=== PATIENT | male | born 1940 | race Caucasian/White ===

== ENCOUNTER 2017-03-05 14:51 | Emergency (ER) | payer MEDICARE ==
[~2017-03-05] VITALS: Ht 188 cm; Wt 123.8 kg
[2017-03-05] MEDS ORDERED: LISINOPRIL-HCT1 EACH PO (15:17)
[2017-03-05] MEDS ORDERED: MONTELUKAST SOD10 MG PO (15:17)
[2017-03-05] MEDS ORDERED: TAMSULOSIN HCL0.4 MG PO (15:17)
[2017-03-05] MEDS ORDERED: AMITRIPTYLINE H25 MG PO (15:18)
[2017-03-05] MEDS ORDERED: LEVOTHYROXINE100 MCG PO (15:18)
[2017-03-05] MEDS ORDERED: ATORVASTATIN CA40 MG PO (15:19)
[2017-03-05] MEDS ORDERED: METOPROLOL SUC100 MG PO (15:19)
--- NOTE | 2017-03-05 21:08 | EKG ---
[facility] [address] [facility] [place] [address] Signed Atrial fibrillation with rapid ventricular response ST \T\ T wave abnormality, consider inferior ischemia Abnormal ECG No previous ECGs available Confirmed by JALEESA BIRMINGHAM MD ([id number]) on 03/05/2017 9:08:41 PM Electronically Signed By: JALEESA BIRMINGHAM MD 03/05/17 2108 PATIENT NAME: FATMATA WAGNER MADISYN Electrocardiogram DATE OF : 42 PHYSICIAN: JALEESA BIRMINGHAM MD REPORT #: [id number] REPORT IS CONFIDENTIAL AND NOT TO BE RELEASED WITHOUT AUTHORIZATION
== END 2017-03-05 16:41 | disposition home or self-care (01) ==
LOC: ED 14:51
DX: I48.91 Unspecified atrial fibrillation (principal); J45.909 Unspecified asthma, uncomplicated; I10 Essential (primary) hypertension; E78.00 Pure hypercholesterolemia, unspecified; Z87.891 Personal history of nicotine dependence; Z88.0 Allergy status to penicillin; Z79.899 Other long term (current) drug therapy
CPT/HCPCS: 71020; 80053; 84484; 85025; 93005; 93010; 99284

== ENCOUNTER 2019-04-02 05:45 | Observation (INO) | payer MEDICARE ==
[~2019-04-02] VITALS: Ht 188 cm; Wt 122.5 kg
[~2019-04-02 05:45] MED LIST: AMITRIPTYLINE H25 MG PO; ATORVASTATIN CA40 MG PO; COUMADIN1 MG PO; LEVOTHYROXINE100 MCG PO; LISINOPRIL-HCT1 EACH PO; METOPROLOL SUC100 MG PO; MONTELUKAST SOD10 MG PO; TAMSULOSIN HCL0.4 MG PO
--- NOTE | 2019-04-02 08:11 | NUR ---
04/02/19 0810 Carolyn Cam 0804-PATIENT ARRIVED TO PACU ON 10L MASK NONAROUSABLE RR EVEN. PLACED ON 6L MASK. PATIENT LAYING LEFT LATERAL ABDOMEN ROUND. PATIENT IN AFIB HR RANGING 110-120. IVF INFUSING.
--- NOTE | 2019-04-02 11:00 | NUR ---
79 YEAR OLD MALE PATIENT ADMITTED TO CCU FROM PACU WITH DX OF S/P COLONOSCOPY/AFIB RVR. UPON ADMIT TO CCU PATIENT IS ALERT, ORIENTED AND COOPERATIVE. DENIES PAIN OR SHORTNESS OF BREATH. HAS HX OF AFIB, PATIENT DID TAKE TOPROL THIS AM. CARDIZEM GTT HUNG AT 5 MG/HR. WILL TITRATE ACCORDINGLY. MAG HUNG AT ORDERED.
--- NOTE | 2019-04-02 11:13 | OR ---
[facility] [address] [place], [place] [address] Signed DATE OF OPERATION: 04/02/2019 SURGEON: René Mabry MD PREOPERATIVE DIAGNOSIS: Screening. POSTOPERATIVE DIAGNOSES: 1. 4 mm polyps at hepatic flexure, 68 cm, 55 cm, 22 cm and 12 cm. 2. 7 mm polyp at 75 cm. 3. Kdzg-wf-vfzhccuk sigmoid diverticulosis. 4. Moderate internal and external hemorrhoids. PROCEDURE: Colonoscopy with hot biopsy. ESTIMATED BLOOD LOSS: None. INDICATIONS: Mak is a 79-year-old gentleman, asked to see me for a followup screening colonoscopy. He had a negative colonoscopy at age 69 [address] Coelho in [place], [place]. He told me he has no lower GI complaints currently. There is no family history of colon cancer or polyps. He told me he is allergic to narcotics. Consequently, he avoids them. As a result, we needed an anesthesia provider today to help us with increased monitoring and sedation with propofol. In the office, I gave Mak a booklet on colonoscopy and we looked at that together along with the risks including, but not limited to gas, bloating, crampy abdominal pain, bleeding, perforation requiring surgery, and missed diagnosis. He had expressed understanding and wished to proceed. PROCEDURE NOTE: Mak was taken into our endoscopy suite and placed in the left lateral decubitus position. He was given IV sedation with propofol. A digital rectal exam was performed and he has moderate external hemorrhoids. His prostate gland is not particularly enlarged, but it is certainly indurated and the right is more prominent than the left. He might review that with his primary care provider. After this, the adult colonoscope was introduced and advanced all around into the cecum under direct visualization of camera without difficulty. His prep was good. The scope was slowly withdrawn. We could easily see the appendiceal orifice and the ileocecal valve. We took pictures throughout for photodocumentation. The above-mentioned polyps were easily removed with Electronically Signed By: RENÉ MABRY MD 04/02/19 1113 PATIENT NAME: MAK WAGNER OPERATIVE REPORT DATE OF : 42 REPORT #: [id number] PHYSICIAN: RENÉ MABRY MD PCP: CHARANJIT GLOVER MD REPORT IS CONFIDENTIAL AND NOT TO BE RELEASED WITHOUT AUTHORIZATION [facility] [address] [place], [place] [address] Signed the help of hot biopsy forceps. We also noticed the qwah-we-ltasjfku sigmoid diverticula. They were stdjgkr-fs-rehbguua in number and size. The rectum itself had a few small polyps. Upon retroflexion of the scope, he does have moderate internal hemorrhoids as well. After this, the gas was suctioned out and the colonoscope removed. Mak tolerated this procedure quite well. RECOMMENDATIONS: I will see Mak back in the office in 7 to 14 days to review his results. He might review his prostate exam with his primary care provider. MD MARIS Connelly/OLIVERL /[id number] cc: MD René Greenberg MD Copies: CHARANJIT GLOVER MD, ANDREW L MD ~ Electronically Signed By: RENÉ MABRY MD 04/02/19 1113 PATIENT NAME: MAK WAGNER OPERATIVE REPORT DATE OF : 42 REPORT #: [id number] PHYSICIAN: RENÉ MABRY MD PCP: CHARANJIT GLOVER MD REPORT IS CONFIDENTIAL AND NOT TO BE RELEASED WITHOUT AUTHORIZATION
--- NOTE | 2019-04-02 12:30 | NUR ---
SITTING UP IN BED TO TAKE LUNCH. PATIENT IS W/O C/O. CARDIZEM GTT AT 10 MG/HR.
--- NOTE | 2019-04-02 13:00 | NUR ---
DR. SAUL UPDATED ON HEART RHYTHM, AND RATE OF CARDIZEM DRIP.
--- NOTE | 2019-04-02 14:05 | EKG ---
[facility] [address] [place] [address] Signed Sinus bradycardia with sinus arrhythmia Otherwise normal ECG When compared with ECG of 05-MAR-2017 15:01, Sinus rhythm has replaced Atrial fibrillation Vent. rate has decreased BY [address] no longer depressed in Lateral leads Nonspecific T wave abnormality no longer evident in Inferior leads T wave inversion no longer evident in Lateral leads Confirmed by KATHLEEN SAUL MD ([id number]) on 04/02/2019 2:05:11 PM Electronically Signed By: KATHLEEN SAUL MD 04/02/19 1405 PATIENT NAME: FATMATA WAGNER Electrocardiogram DATE OF : 42 PHYSICIAN: KATHLEEN SAUL MD REPORT #: [id number] REPORT IS CONFIDENTIAL AND NOT TO BE RELEASED WITHOUT AUTHORIZATION
--- NOTE | 2019-04-02 14:06 | EKG ---
[facility] [address] [facility] [place] [address] Signed Atrial fibrillation with rapid ventricular rate Abnormal ECG When compared with ECG of 02-APR-2019 05:58, (Unconfirmed) Atrial fibrillation has replaced Sinus rhythm Vent. rate has increased BY 73 BPM Confirmed by KATHLEEN SAUL MD ([id number]) on 04/02/2019 2:06:14 PM Electronically Signed By: KATHLEEN SAUL MD 04/02/19 1406 PATIENT NAME: FATMATA WAGNER Electrocardiogram DATE OF : 42 PHYSICIAN: KATHLEEN SAUL MD REPORT #: [id number] REPORT IS CONFIDENTIAL AND NOT TO BE RELEASED WITHOUT AUTHORIZATION
--- NOTE | 2019-04-02 14:21 | NUR ---
USED BED FLYNN TO EXPELL SMALL BROWN LIQUID STOOL.
--- NOTE | 2019-04-02 16:45 | NUR ---
UP TO COMMODE WITH ASSIST. HR TO 117, TREAD OF HR WHILE UP <100. DENIES SHORTNESS OF BREATH OR OR DIZZINESS. BACK TO BED W/O INCIDENT.
--- NOTE | 2019-04-02 18:15 | NUR ---
HR TREND IN >110. CARDIZEM GTT INCREASED TO 10 MG/HR.
--- NOTE | 2019-04-02 18:38 | NUR ---
DR. DURHAM AWARE OF CARDIZEM GTT AT 10 MG/HR,HR AND BP. NO FUTHER ORDERS AT THIS TIME. PATIENT W/O SS.
--- NOTE | 2019-04-02 18:55 | NUR ---
NO CHANGES, REMAINS ON CARDIZEM AT 10 MG/HR. HR 110-130. REPORT TO NEXT SHIFT.
--- NOTE | 2019-04-02 19:58 | NUR ---
RECEIVED REPORT AT 1900, FOUND PT IN BED WITH AT BEDSIDE. HR STILL FROM 90'S-140'S. SBP 80'S -90'S AT THIS TIME. CARDIAZAM DRIP AT 10MG/HR. AT THIS TIME ALL LOBES ARE CLEAR, PT DENIES SOB, PT DENIES FLUTTER IN CHEST OR CHEST PAIN. PT HAS SOME SLIGHT PITTING EDEMA IN ARMS. NO OTHER PERIPHERAL EDEMA NOTED. PT IS AAOX4, PT DENIES PAIN AT THIS TIME.
--- NOTE | 2019-04-02 20:12 | NUR ---
CARDIAZAM DRIP RATE INCREASED TO 12.5MG/HR. BP 119/83, NO CHANGE IN HEART RATE. BNP ELEVATED AT 254
--- NOTE | 2019-04-02 21:16 | NUR ---
PT EARLIER WAS FLAT IN BED DUE TO A NEEDED BED CHANGE. PT STATED THAT WHEN LAYING FLAT HE DOES FEEL SOB WITH CHEST PRESSURE. PT WAS ADVISED TO SIT UP SOME WHILE SLEEPING.
--- NOTE | 2019-04-02 22:01 | NUR ---
PT AT THIS TIME IS SLEEPING. HR 80'S - LOW 100'S. SBP>100. CARDIZEM DRIP REDUCED TO 10MG/HR. WILL CONTINUE TO REDUCE DRIP RATE PO CARDIZEM IS TAKING EFFECT. PT IN THE PAST HOUR OR SO HAD 2 PAUSES >2SECONDS.
--- NOTE | 2019-04-02 22:01 | NUR ---
PT AT THIS TIME IS SLEEPING. HR 80'S - LOW 100'S. SBP>100. CARDIAZAM DRIP REDUCED TO 10MG/HR. WILL CONTINUE TO REDUCE DRIP RATE PO CARDIAZAM IS TAKING EFFECT. PT IN THE PAST HOUR OR SO HAD 2 PAUSES >2SECONDS.
--- NOTE | 2019-04-02 22:10 | NUR ---
DRIP RATE REDUCED TO 7.5MG/HR DUE TO HR NOW IN THE 70'S-80'S.
--- NOTE | 2019-04-02 23:06 | NUR ---
CARDIAZAM DRIP HAS BEEN PUT ON STANDBY AT THIS TIME DUE TO HR 60'S-70'S AND BP OF 92/48 (58). WILL CONTINUE TO MONITOR AND TURN DRIP BACK ON IF NEED BE. PT IS STILL IN A-FIB.
--- NOTE | 2019-04-02 23:55 | NUR ---
DRIP IS STILL ON STANDBY FOR NOW. PT STILL HAS FREQUENT PAUSES >2SEC. PT STILL IN A-FIB. HR 60'S-80'S, LAST BP 99/61 (68). ALL LOBES ARE CLEAR, PT DENIES SOB AND CHEST PRESSURE AT THIS TIME. NO NEW CONCERNS NOTED AT THIS TIME. SECOND ASSESSMENT UNCHANGED FROM FIRST OVERALL.
--- NOTE | 2019-04-03 01:19 | NUR ---
AT THIS TIME CARDIAZAM DRIP HAS BEEN TURNED ON AGAIN AT 2.5MG/HR DUE TO HR IN THE 90'S -LOW 100'S. WILL CONTINUE TO MONITOR.
--- NOTE | 2019-04-03 01:19 | NUR ---
AT THIS TIME CARDIZEM DRIP HAS BEEN TURNED ON AGAIN AT 2.5MG/HR DUE TO HR IN THE 90'S -LOW 100'S. WILL CONTINUE TO MONITOR.
--- NOTE | 2019-04-03 01:35 | NUR ---
DRIP RATE AT THIS TIME IS AT 5MG/HR DUE TO HR STILL IN THE LOW 100'S- 120'S AT TIMES. LAST BP 95/47 (58).
--- NOTE | 2019-04-03 03:24 | NUR ---
PT AT THIS TIME IS SLEEPING. HR IN THE 70'S-90'S. SBP >95 SO FAR. DRIP RATE STILL AT 5MG/HR.
--- NOTE | 2019-04-03 04:20 | NUR ---
45MG CARDIZEM WAS GIVEN 2HRS AGO. DRIP RATE IS GOING AT 7.5MG/HR NOW. PT THIS TIME AROUND DOES NOT SEEM TO RESPOND WELL TO THE PO CARDIZEM GIVEN EARLIER. NO CHANGES NOTED WITH THIRD ASSESSMENT THIS SHIFT.
--- NOTE | 2019-04-03 04:20 | NUR ---
45MG CARDIAZAM WAS GIVEN 2HRS AGO. DRIP RATE IS GOING AT 7.5MG/HR NOW. PT THIS TIME AROUND DOES NOT SEEM TO RESPOND WELL TO THE PO CARDIAZAM GIVEN EARLIER. NO CHANGES NOTED WITH THIRD ASSESSMENT THIS SHIFT.
--- NOTE | 2019-04-03 05:13 | NUR ---
CADIZEM DRIP AT THIS TIME WAS TITRATED DOWN TO 5MG/HR. HR IN THE 70'S- 90'S. BP 95/59 (67). PT HAD A FEW PAUSES IN THE PAST HOUR THAT WERE >2SECONDS.
--- NOTE | 2019-04-03 06:13 | NUR ---
PT AT THIS TIME IS AWAKE IN BED. HR STILL IRREGULAR IN THE 70'S-90'S WITH MOST RECENT BP OF 112/77 (82). CARDIZEM DRIP AT 5MG/HR AT THIS TIME.
--- NOTE | 2019-04-03 06:36 | NUR ---
AT START OF SHIFT HR WAS UP TO 140 AT TIMES BUT NOT SUSTAINED. CARDIZEM DRIP WAS INCREASED FROM 10MG/HR TO 12.5MG/HR. PT RESPONDED WELL TO PO CADIZEM DOSE FOR A WHILE FROM ABOUT [id number]. DRIP DURING THAT TIME WAS ON STANDBY. PT HAD MANY PAUSES WELL FROM >2SEC TO <3SECONDS. HR STAYED IRREGULAR. AT 0120 DRIP WAS TURNED BACK ON AT 2.5MG/HR AND THEN 5MG /HR DUE TO INCREASE IN HR UP TO 120. PO CADIZEM WAS GIVEN BUT PT DID NOT RESPOND WELL WITH THE SECOND DOSE. DRIP HAS BEEN RUNNING AT 5MG/HR SINCE 0120. I WAS NOT ABLE TO PUT THE DRIP ON STANDBY. PT HAD SOME CHEST PRSSURE WHEN LAYING FLAT IN BED AT START OF SHIFT. HEAD OF BED THEREFORE HAS BEEN ELEVATED SOME THOUGHOUT THE NIGHT. ALL LOBES HAVE BEEN CLEAR ALL SHIFT. PT HAS DENIED ANY SORT OF PAIN ALL SHIFT. URINE OUTPUT WAS 425ML FOR THIS SHIFT.
--- NOTE | 2019-04-03 09:02 | NUR ---
PATIENT RESTING UPRIGHT IN BED THIS AM AND FINISHED HIS BREAKFAST. PT REMAINS ON DILT GTT AT 5 MG/HR. LENGTHY DISCUSSION WITH PATIENT REGARDING AFIB AND TREATMENT OF AFIB AT THIS TIME. PT KNOWLEDGABLE ABOUT AFIB BUT ASKING GOOD QUESTIONS. SCDs ON. AM MEDICATIONS GIVEN. HR HAS BEEN TRENDING UP THIS AM, WITH RATE HOVERING IN THE 100-120 RANGE. PT STATES HE HAS SOME SHORTNESS OF BREATH WHEN HE LIES FLAT, BUT ONCE HE ROLLS OVER IT GOES AWAY. PT NOTES THAT THIS EVEN HAPPENS AT HOME AT TIMES. PT CURIOUS ABOUT HIS ASTHMA MEDICATION HE TAKES AT HOME - WILL DISCUSS WITH MD. PLAN OF CARE DISCUSSED. CONTINUE TO MONITOR.
[2019-04-03] MEDS ORDERED: MOBIC15 MG PO (11:58)
--- NOTE | 2019-04-03 12:02 | NUR ---
MED REC COMPLETE
--- NOTE | 2019-04-03 13:54 | NUR ---
CARDIZEM GTT TURNED DOWN TO 2.5 MG/HR. HR HAS BEEN TRENDING DOWN IN THE 70-80s MORE NOW, VERSUS IN THE 90-110s. PT HAS ALSO BEEN TRYING TO DRINK MORE PO FLUIDS. DENIES FURTHER NEEDS.
--- NOTE | 2019-04-03 14:32 | NUR ---
DILT GTT TURNED OFF AT THIS TIME. PT RECENTLY GIVEN 45 MG CARDIZEN AND 37.5 MG METOPROLOL. HEART RATE STAYING BELOW 100. PAUSES NOTED, BUT NO PAUSES GREATER THAN 3 SEC AT THIS TIME. LAST BP 107/67 (72).
--- NOTE | 2019-04-03 14:48 | NUR ---
DR. DURHAM IN ROOM TO CHECK ON PATIENT AGAIN. PT REMAINS SITTING UP IN CHAIR WITH HIS IN ROOM WELL. HR REMAINS IN AFIB, 70-90s. CONTINUE TO MONITOR CLOSELY.
--- NOTE | 2019-04-03 18:24 | NUR ---
PATIENT REMAINS OFF DILT GTT AND TOLERATING WELL. HEART RATE REMAINING IN THE 80-90s. PT HAS PAUSES AT TIMES, NONE OVER 3 SECONDS AT THIS TIME.
--- NOTE | 2019-04-03 20:00 | NUR ---
RECEIVED REPORT AT 1900. FOUND PT IN BED WATCHING TV. PT STATED THAT HE WAS FEELING MUCH BETTER TODYAY. PT DENIED PAIN, SOB, CHEST PAIN AND HAD NO OTHER COMPLAINTS. V/S WDL SO FAR. ALL LOBES ARE CLEAR, HR IS STILL IRREGULAR. PT STILL HAS SOME TRACE EDEMA IN BILATERAL LOWER ARMS. RADIAL AND PEDIS PULSES +2. NO NEW CONCERNS NOTED.
--- NOTE | 2019-04-03 21:00 | NUR ---
PT AT THIS TIME IS AWAKE IN BED. HR AT TIMES 100-110 FOR BRIEF INTERVALS.
--- NOTE | 2019-04-03 22:03 | NUR ---
PT IS LEEPING AT THIS TIME. HR 80'S-LOWW 100'S STILL AT TIMES. BP WDL SO FAR. SINCE 1900 PT HAS VOIDED 450MLS. NO NEW CONCERNS NOTED AT THIS TIME.
--- NOTE | 2019-04-03 23:19 | NUR ---
PT IS STILL SLEEPING, HR IN THE 80'S-90'S FOR THE MOST PART BUT SPIKING INTH THE LOW 100'S ON OCCASION. BP'S LOW BUT I DON'T THINK THEY ARE ACCURATE SINCE PT IS LAYING ON HIS SIDE. NO NEW CONCERNS NOTED.
--- NOTE | 2019-04-04 00:56 | NUR ---
PT AT THIS TIME IS STILL SLEEPING. HR IN THE 70'S- LOW 100'S AT TIMES. EARLIER PT AND I AGREED TO POSTPONE 0000 ASSESSMENT FOR 0200. PT WISHED TO SLEEP. SINCE THERE ARE NO NEW CONCERNS TO BE NOTED, I AGREED TO LET HIM SLEEP UNTIL 0200.
--- NOTE | 2019-04-04 01:58 | NUR ---
PT AT THIS TIME HAS SOME EXPIRATORY WHEEZING PRESENT IN THE LLL AND PHILL. ALL OTHER LOBES ARE CLEAR. OHTERWISE ASSESSMENT WAS OVERALL BEGNIN. IT WAS ALSO NOTED THAT WITH MOVING, PT HR JUMPED INTO THE 120'S QUICKLY. NO OTHER CONCERNS NOTED SO FAR.
--- NOTE | 2019-04-04 02:54 | NUR ---
PT AT THIS TIME IS SLEEPING. HR IN THE 80'S FOR THE MOST PART. BP SLIGHTLY ELEVATED AT THIS TIME. URINE OUTPUT SO FAR HAS BEEN GOOD.
--- NOTE | 2019-04-04 06:24 | NUR ---
PT AT THIS TIME IS STILL SLEEPING. NO NEW CONCERNS NOTED.
--- NOTE | 2019-04-04 06:25 | NUR ---
PT IS AWAKE IN BED. V/S ARE WDL INCLUDING HR. LLL STILL HAS SOME EXPIRATORY WHEEZING PRESENT. OTHERWISE NO CONCERNS NOTED. PT VOIDED QUANTITY SUFFICIENT THIS SHIFT.
--- NOTE | 2019-04-04 08:13 | NUR ---
PATIENT IS ALERT, ORIENTED, AND SITTING UP IN BED WATCHING TV UPON INITIAL ASSESSMENT. ASSESSMENT COMPLETE. HEART RATE REMAINS IN THE 80-90s MOSTLY, BUT DOES GO UP TO THE 110-120s BRIEFLY WITH ACTIVITY WHILE IN BED, LIKE SITTING FORWARD TO EAT BREAKFAST. PLAN OF CARE DISCUSSED. PT PREFERS TO WAIT TO SHOWER UNTIL HE GOES HOME, IF THAT IS THE PLAN FOR PATIENT TODAY. PT REMAINS IN AFIB. PT DENIES PAIN/DISCOMFORT. CONTINUE TO MONITOR. CALL LIGHT WITHIN REACH.
--- NOTE | 2019-04-04 08:40 | NUR ---
PATIENT USES CALL LIGHT AND UP TO BATHROOM TO ATTEMPT TO HAVE BM. HR UP TO 110-120s WITH ACTIVITY.
--- NOTE | 2019-04-04 10:59 | NUR ---
PT SITTING UP IN BED TALKING WITH WHO IS AT THE BEDSIDE. PT DENIES ANY NEEDS AT THIS TIME. VITALS ARE WNL. PT HAS CALL LIGHT WITHIN REACH.
[2019-04-04] MEDS ORDERED: METOPROLOL SUCC50 MG PO (11:23)
[2019-04-04] MEDS ORDERED: DILTIAZEM 24HR180 M1 PO (11:23)
--- NOTE | 2019-04-04 11:56 | NUR ---
PATIENT TO DISCHARGE HOME. PATIENT WILL GO HOME ON DILTIAZEM AND METOPROLOL.
== END 2019-04-04 12:35 | disposition home or self-care (01) ==
LOC: DS 05:45 → OPS 05:45 → DS 06:45 → OPS 06:45 → CCU 10:45 → OPS 10:46 → CCU 10:46
PROVIDERS: Colon & Rectal Surgery; ADMIT Internal Medicine
PROC: 0DBL8ZX Excision of Transverse Colon, Via Natural or Artificial Opening Endoscopic, Diagnostic (ICD-10-PCS; 2019-04-02)
PROC: 0DBM8ZX Excision of Descending Colon, Via Natural or Artificial Opening Endoscopic, Diagnostic (ICD-10-PCS; principal; 2019-04-02 06:45)
DX: I48.0 Paroxysmal atrial fibrillation (principal); Z12.11 Encounter for screening for malignant neoplasm of colon; J45.909 Unspecified asthma, uncomplicated; I10 Essential (primary) hypertension; E03.9 Hypothyroidism, unspecified; E78.5 Hyperlipidemia, unspecified; G43.909 Migraine, unspecified, not intractable, without status migrainosus; K63.5 Polyp of colon; D12.3 Benign neoplasm of transverse colon; K57.30 Diverticulosis of large intestine without perforation or abscess without bleeding; K64.4 Residual hemorrhoidal skin tags; K64.8 Other hemorrhoids
CPT/HCPCS: 36415; 80048; 80053; 83735; 83880; 84443; 88305; 93005; 93010; 96374; G0378; J2704; J3475; J3490; J7120

== ENCOUNTER 2021-09-15 08:56 | Emergency (ER) | payer MEDICARE ==
[~2021-09-15] VITALS: Ht 188 cm; Wt 129.7 kg
[~2021-09-15 08:56] MED LIST changes: +DILTIAZEM 24HR180 M1 PO; +METOPROLOL SUCC50 MG PO; +MOBIC15 MG PO
[2021-09-15] MEDS ORDERED: XARELTO20 MG PO (09:19)
== END 2021-09-15 11:10 | disposition home or self-care (01) ==
LOC: ED 08:56
DX: G43.909 Migraine, unspecified, not intractable, without status migrainosus (principal); J45.909 Unspecified asthma, uncomplicated; I10 Essential (primary) hypertension; E78.00 Pure hypercholesterolemia, unspecified; Z87.891 Personal history of nicotine dependence; Z88.0 Allergy status to penicillin; Z79.899 Other long term (current) drug therapy
CPT/HCPCS: 36415; 70450; 80053; 85025; 85651; 86140; 96374; 96375; 99284-25; J0780; J1100; J1200

== ENCOUNTER 2024-04-11 16:42 | Emergency (ER) | payer MEDICARE ==
[~2024-04-11] VITALS: Ht 188 cm; Wt 125.4 kg
[~2024-04-11 16:42] MED LIST changes: +ALLOPURINOL100 MG PO; +AMIODARONE HCL200 MG PO; +CIPRO500 MG PO; +DOXYCYCLINE HY100 MG PO; +DULERA 100 MCG/13 GM; +ENTRESTO 49 MG1 EACH; +ENTRESTO 49 MG1 EACH PO; +FARXIGA10 MG PO; +FLUCONAZOLE150 MG PO; +HYDROCHLOROTHIA25 MG PO; +MELATONIN3 MG PO; +METRONIDAZOLE500 MG PO; +NYSTATIN15 G2; +XARELTO20 MG PO
--- OUTSIDE RECORDS SUMMARY | 2024-04-11 16:49 | XMS ---
PreManage Notification: FATMATA WAGNER Security Over Short And Damage Clerk Events No recent Security Events currently on file CRITERIA MET - [facility] - 2 Visits in 30 Days CARE PROVIDERS There are no care providers on record at this time. Eddie has no Care Guidelines for this patient. [place] VISIT COUNT (12 MO.) [address] [facility] TOTAL 5 NOTE: Visits indicate total known visits. ED/UCC VISIT TRACKING (12 MO.) 04/11/2024 16:43 [facility] [place] TYPE: Emergency COMPLAINT: - BLOOD IN STOOL 03/16/2024 10:43 [facility] [place] TYPE: Emergency COMPLAINT: - HIP PAIN DIAGNOSES: - Allergy status to narcotic agent - Allergy status to penicillin - Bitten or stung by nonvenomous insect and other nonvenomous arthropods, initial encounter - Essential (primary) hypertension - Insect bite (nonvenomous), left hip, initial encounter - extermination inspector (current) use of anticoagulants - Other half-way (current) drug therapy - Personal history of nicotine dependence - Pure hypercholesterolemia, unspecified - Unspecified asthma, uncomplicated - Unspecified atrial fibrillation 11/15/2023 17:14 [facility] [place] TYPE: Emergency COMPLAINT: - HIGH BLOOD PRESSURE DIAGNOSES: - Allergy status to narcotic agent - Allergy status to penicillin - Disorder of thyroid, unspecified - Essential (primary) hypertension - MCFP (current) use of anticoagulants - MCFP (current) use of oral hypoglycemic drugs - Other half-way (current) drug therapy - Personal history of nicotine dependence - Pure hypercholesterolemia, unspecified - Unspecified asthma, uncomplicated - Unspecified atrial fibrillation 11/10/2023 08:06 [facility] [place] TYPE: Emergency COMPLAINT: - LOW BLOOD PRESSURE, DIZZINESS DIAGNOSES: - Allergy status to narcotic agent - Allergy status to penicillin - Dizziness and giddiness - Essential (primary) hypertension - Hormone replacement therapy - Hypotension, unspecified - extermination inspector (current) use of anticoagulants - extermination inspector (current) use of oral hypoglycemic drugs - Other half-way (current) drug therapy - Personal history of nicotine dependence - Presence of automatic (implantable) cardiac defibrillator - Pure hypercholesterolemia, unspecified - Unspecified asthma, uncomplicated - Unspecified atrial fibrillation 08/21/2023 16:[address] [facility] [place] TYPE: Emergency COMPLAINT: - LOWER ABD PAIN DIAGNOSES: - Allergy status to penicillin - Diverticulitis of large intestine without perforation or abscess without bleeding - Essential (primary) hypertension - Hormone replacement therapy - extermination inspector (current) use of antithrombotics/antiplatelets - Lower abdominal pain, unspecified - Other half-way (current) drug therapy - Presence of artificial knee joint, bilateral INPATIENT VISIT TRACKING (12 MO.) No inpatient visits to display in this time frame [email or web address]
[2024-04-11] MEDS ORDERED: LIDOCAINE 2% VISCOUS 6 ML SYR TOP ONE (17:15)
[2024-04-11 17:20] LABS: BASOPHILS 0.4 % (0-2); EOSINOPHILS 1.3 % (0-6); HEMATOCRIT 43.7 % (35.0-50.0); HEMOGLOBIN 14.6 g/dL (12.0-18.0); LYMPHOCYTES 20.4 % (24-44); MCH 32.2 (27-36); MCHC 33.4 g/dl (30-36); MCV 96.2 fl (81-99); MONOCYTES 11.3 % (0-12); NEUTROPHILS 66.6 % (39-80); PLATELET COUNT 206 K/uL (140-440); RBC 4.54 M/ul (4.3-5.7); RDW 14.2 (10.5-15.0)
[2024-04-11 17:25] LABS: INR 2.76 (0.80-1.30); PROTIME 28.8 Sec (11.2-14.2)
[2024-04-11 17:29] LABS: ALBUMIN 2.9 g/dL (3.4-5.0); ALBUMIN/GLOBULIN RATIO 1.04 (1.1-2.4); ANION GAP 10.5 (7-21); BILIRUBIN, TOTAL 1.6 ng/dL (0.2-1.0); BUN/CREATININE RATIO 19.51 (6.0-28.6); CALCIUM 8.3 mg/dL (8.5-10.1); CREATININE, SERUM 1.64 mg/dL (0.70-1.30); POTASSIUM 3.5 mmol/L (3.5-5.1); PROTEIN, TOTAL 5.7 g/dL (6.4-8.2)
[2024-04-11 17:47] LABS: ABO A; RH NEGATIVE
[2024-04-11 17:48] LABS: ANTIBODY SCREEN NEGATIVE
[2024-04-11 19:10] VITALS: BP 146/94
== END 2024-04-11 19:10 | disposition home or self-care (01) ==
LOC: ED 16:42
PROVIDERS: Emergency Medicine
DX: K64.4 Residual hemorrhoidal skin tags (principal); Z87.891 Personal history of nicotine dependence; Z96.653 Presence of artificial knee joint, bilateral; Z95.0 Presence of cardiac pacemaker; Z96.669 Presence of unspecified artificial ankle joint; Z88.0 Allergy status to penicillin; Z88.5 Allergy status to narcotic agent; Z79.899 Other long term (current) drug therapy; Z79.02 Long term (current) use of antithrombotics/antiplatelets; Z79.890 Hormone replacement therapy
CPT/HCPCS: 36415; 80053; 85025; 85610; 85730; 86850; 86900; 86901; 99283